=== PATIENT | female | born 1985 | race Caucasian/White ===

== ENCOUNTER → 2021-11-03 | Outpatient (CLI) | payer BC, OTHER ==
[~2021-11-03] MED LIST: DCS100C PO; FERR-57 PO; HYDR1TAB PO; IBP600T1 PO; METH0.2T45 PO; OXYC-12 PO; PREN1TAB39 PO
[2021-11-03 14:58] VITALS: BP 96/73
--- NOTE | 2021-11-03 15:31 | Cardiology Stress Test Report ---
Stress Test Report Date of Procedure/Referring: Date of Procedure: November 03, 2021 PCP Ander Pedraza MD Admitting Physician Alejandrina Chen DO Indications: CP Baseline Heart Rate: 76 Baseline Blood Pressure: Blood Pressure Systolic: 96 Blood Pressure Diastolic: 73 Baseline EKG: Baseline EKG: NSR Summary/Conclusion: Summary: In summary, the patient started exercising with a baseline heart rate, blood pressure and EKG mentioned above Patient was able to exercise for a total of 12 minutes on Reyes protocol, METs 12.3 Maximum heart rate 171 Maximum blood pressure 133/81 Stress EKG, Minimal nondiagnostic changes Recovery EKG , Return to baseline Conclusion: 1. Good exercise tolerance for a total of 12 minutes on Reyes protocol, 12.3 METs, achieving 91 percent of maximum expected heart rate 2. Minimal nondiagnostic EKG changes with exercise returned to baseline during recovery 3. No significant arrhythmia was noted during test. Slow recovery time with a heart rate stayed around 120 with sinus tachycardia after 9 minutes of recovery 4. Patient was on beta-blockers with propranolol prior to the test, did not take it on the day of the test ANDER PEDRAZA MD November 03, 2021 15:31
== END ==
LOC: CARD 15:00
PROVIDERS: ATTEND Internal Medicine Cardiovascular Disease
DX: I08.0 Rheumatic disorders of both mitral and aortic valves (principal); I10 Essential (primary) hypertension; I25.10 Atherosclerotic heart disease of native coronary artery without angina pectoris
CPT/HCPCS: 93017; 93306